=== PATIENT | female | born 1975 | race Two or more races ===

== ENCOUNTER 2021-06-23 10:13 | Outpatient (CLI) | payer OTHER | END 2021-06-23 10:37 | disposition home or self-care (01) | LOC: RAD 10:13 | PROVIDERS: ATTEND Urology | DX: N20.0 Calculus of kidney (principal); R31.1 Benign essential microscopic hematuria ==

== ENCOUNTER 2021-08-25 09:49 | Outpatient (CLI) | payer OTHER | END 2021-08-25 09:56 | disposition home or self-care (01) | LOC: MAMO-SONO 09:49 | DX: N64.4 Mastodynia (principal); D25.9 Leiomyoma of uterus, unspecified ==

== ENCOUNTER 2021-09-15 12:25 | Outpatient (CLI) | payer OTHER | END 2021-09-15 12:42 | disposition home or self-care (01) | LOC: MAMO-SONO 12:25 | DX: N63.11 Unspecified lump in the right breast, upper outer quadrant (principal) ==

== ENCOUNTER 2021-09-15 13:42 | Outpatient (CLI) | payer OTHER | END 2021-09-15 13:48 | disposition home or self-care (01) | LOC: LAB 13:42 | PROVIDERS: ATTEND Radiology Diagnostic Radiology | DX: D25.1 Intramural leiomyoma of uterus (principal) ==

== ENCOUNTER 2021-10-06 09:47 | Outpatient (CLI) | payer OTHER | END 2021-10-06 09:59 | disposition home or self-care (01) | LOC: MRI 09:47 | PROVIDERS: ATTEND Obstetrics & Gynecology | DX: D25.1 Intramural leiomyoma of uterus (principal) | CPT/HCPCS: 72196 ==